=== PATIENT | female | born 1990 | race Hispanic/Latino ===

== ENCOUNTER 2016-10-18 21:09 | Observation (INO) | payer MEDICAID, OTHER ==
[2016-10-18 21:09] VITALS: BMI 18.5
--- NOTE | 2016-10-18 22:19 | C.PDOC ---
History Of Present Illness A 29 year old female brought in by EMS for intoxication and needing a place to sleep. Patient just "wants a place to sleep" she denies any other complaints. Time Seen by Provider: 10/18/16 21:17 Chief Complaint (Nursing): Substance Abuse History Per: Patient History/Exam Limitations: no limitations Onset/Duration Of Symptoms: Hrs Current Symptoms Are (Timing): Still Present Suicide/Self Injury Attempted (Context): None Modifying Factor(s): Other (Heroin) Severity: Mild Associated Symptoms: denies: Suicidal Thoughts, Suicidal Plan Recent travel outside of the [place]: No Past Medical History Reviewed: Historical Data, Nursing Documentation, Vital Signs Vital Signs: Last Vital Signs Temp 98.6 F 10/18/16 21:24 Pulse 81 10/18/16 21:24 Resp 18 10/18/16 21:24 BP Pulse Ox 95 10/18/16 22:19 - Medical History PMH: Depression, Schizophrenia Denies: Diabetes, Hepatitis, HIV, HTN, Seizures, Sexually Transmitted Disease Family History: States: Unknown Family Hx - Social History Hx Alcohol Use: No Hx Substance Use: Yes Review Of Systems Except As Marked, All Systems Reviewed And Found Negative. Constitutional: Positive for: Other (Intoxicated). Negative for: Fever, Chills Respiratory: Negative for: Shortness of Breath Gastrointestinal: Negative for: Nausea, Vomiting, Abdominal Pain Psych: Negative for: Suicidal ideation Physical Exam - Physical Exam Appears: Non-toxic, No Acute Distress, Other (Intoxicated) Skin: Warm, Dry Head: Atraumatic, Normacephalic Eye(s): bilateral: Normal Inspection, PERRL, EOMI Cardiovascular: Rhythm Regular, No Murmur Respiratory: Normal Breath Sounds, No Rales, No Rhonchi, No Wheezing Neurological/Psych: Oriented x3, Normal Speech, Other (A&A) ED Course And Treatment O2 Sat by Pulse Oximetry: 95 (RA) Pulse Ox Interpretation: Normal Medical Decision Making Medical Decision Making: Plans: -Admittance foe ED obs -Reassess and disposition ED OBSERVATION Date of observation admission: 10/18/16 Time of observation admission: 22:19 - Observation admission statement Patient is being placed in observation because:: Lack of community services, homelessness, and substance abuse - Goals of Observation Goals of observation are:: Safe environment, pending Sobriety - Progress Note Progress Note: Pt remains stable Disposition - Disposition Disposition: HOME/ ROUTINE Disposition Time: 00:21 Condition: FAIR - Clinical Impression Clinical Impression: Homeless single person, Drug dependence - Scribe Statement The provider has reviewed the documentation as recorded by the Scribe Romina burdick All medical record entries made by the Scribe were at my direction and personally dictated by me. I have reviewed the chart and agree that the record accurately reflects my personal performance of the history, physical exam, medical decision making, and the department course for this patient. I have also personally directed, reviewed, and agree with the discharge instructions and disposition. Physician Patient Turnover Patient Signed Over To: Aniya Reagan Handoff Comments: Pending sobriety
[2016-10-19 01:18] VITALS: RESP 20; O2SAT 98
[2016-10-19 06:02] VITALS: BP 108/76; PULSE 79; TEMP 97.8
== END 2016-10-19 06:05 | disposition home or self-care (01) ==
LOC: C.ER 21:09 → C.9OBSV 21:48
PROVIDERS: ADMIT Emergency Medicine; ATTEND Emergency Medicine
DX: F19.20 Other psychoactive substance dependence, uncomplicated (principal); F20.9 Schizophrenia, unspecified; Z59.0 Homelessness
CPT/HCPCS: 99285; G0378

== ENCOUNTER 2016-10-19 13:31 | Inpatient (IN) | payer MEDICAID, OTHER ==
[2016-10-19 13:31] VITALS: BMI 18.5
--- NOTE | 2016-10-19 14:28 | C.PDOC ---
History Of Present Illness 26 year old patient, with a past medical history of schizophrenia, presents to the ED complaining of hearing and seeing things. Patient has been non-complaint with her schizophrenia medication for the past several months. She also uses heroin. She inhaled a bag last night. Patient denies suicidal or homicidal ideation. Time Seen by Provider: 10/19/16 14:15 Chief Complaint (Nursing): Psychiatric Evaluation History Per: Patient History/Exam Limitations: no limitations Onset/Duration Of Symptoms: Other Current Symptoms Are (Timing): Still Present Suicide/Self Injury Attempted (Context): None Modifying Factor(s): Other (heroin) Severity: None Pain Scale Rating Of: 0 Associated Symptoms: Other (hallucinations) Recent travel outside of the [place]: No Past Medical History Reviewed: Historical Data, Nursing Documentation, Vital Signs Vital Signs: Last Vital Signs Temp 97.7 F 10/19/16 13:41 Pulse 69 10/19/16 16:30 Resp 20 10/19/16 16:30 BP 117/68 10/19/16 16:30 Pulse Ox 100 10/19/16 18:22 - Medical History PMH: Depression, Schizophrenia Family History: States: Unknown Family Hx - Social History Hx Alcohol Use: No Hx Substance Use: Yes - Immunization History Hx Tetanus Toxoid Vaccination: No Hx Influenza Vaccination: No Hx Pneumococcal Vaccination: No Review Of Systems Except As Marked, All Systems Reviewed And Found Negative. Cardiovascular: Negative for: Chest Pain Respiratory: Negative for: Shortness of Breath Psych: Positive for: Other (hallucinations (auditory and visual)). Negative for : Suicidal ideation Physical Exam - Physical Exam Appears: Other (lethargic, easily arousable) Skin: Warm, Dry Head: Atraumatic, Normacephalic Neck: Normal ROM, Supple Chest: Symmetrical Cardiovascular: Rhythm Regular Respiratory: Normal Breath Sounds, No Rales, No Rhonchi, No Wheezing Back: Normal Inspection Extremity: Normal ROM Neurological/Psych: Oriented x3 Gait: Steady ED Course And Treatment - Laboratory Results Result Diagrams: 10/19/16 15:04 10/19/16 15:04 Lab Interpretation: Abnormal (hyperglycemia, opiods and cocaine (+)) Interpretation Of Abnormal: consistent with UTI O2 Sat by Pulse Oximetry: 100 (room air) Pulse Ox Interpretation: Normal Progress Note: Plan: Labs Disposition Counseled Patient/Family Regarding: Studies Performed, Diagnosis - Disposition Disposition: HOSPITALIZED Disposition Time: 18:20 Condition: STABLE - POA Present On Arrival: None - Clinical Impression Clinical Impression: Schizophrenia, Opioid dependence, Urinary tract infection - PA / HITCHER / Resident Statement MD/DO has reviewed & agrees with the documentation as recorded. - Scribe Statement The provider has reviewed the documentation as recorded by the Scribe Nguyen Noble All medical record entries made by the Scribe were at my direction and personally dictated by me. I have reviewed the chart and agree that the record accurately reflects my personal performance of the history, physical exam, medical decision making, and the department course for this patient. I have also personally directed, reviewed, and agree with the discharge instructions and disposition. Decision To Admit - Pt Status Changed To: Hospital Disposition Of: Inpatient - Admit Certification Admit to Inpatient:: After my assessment, the patient will require hospitalization for at least two midnights. This is because of the severity of symptoms shown, intensity of services needed, and/or the medical risk in this patient being treated as an outpatient. - InPatient: Physician Admission Certification: I certify that this patient requires 2 or more midnights of care for the following reason:: see note - . Bed Request Type: Psychiatry Admitting Physician: Napoleon Adam Patient Diagnosis: Schizophrenia, Opioid dependence, Urinary tract infection
[2016-10-19 15:07] LABS: BASO # 0.1 K/uL (0.0-0.2); BASO % 0.9 % (0.0-2.0); EOS # 0.2 K/uL (0.0-0.7); EOS % 2.3 % (0.0-4.0); HEMATOCRIT 42.8 % (34.0-47.0); LYMPH # 2.6 K/uL (1.0-4.3); LYMPH % 24.4 % (20.0-40.0); MEAN CELL VOLUME 94.1 fL (81.0-99.0); MEAN CORPUSCULAR HEMOGLOBIN 31.5 pg (27.0-31.0); MEAN CORPUSCULAR HGB CONC 33.5 g/dL (33.0-37.0); MEAN PLATELET VOLUME 9.4 fL (7.2-11.7); MONO # 0.6 K/uL (0.0-0.8); MONO % 5.8 % (0.0-10.0); RED CELL DISTRIBUTION WIDTH 12.7 % (11.5-14.5); WHITE BLOOD COUNT 10.8 K/uL (4.8-10.8)
[2016-10-19 15:12] LABS: RBC URINE 5 /hpf (0-3); URINE BILIRUBIN NEGATIVE (NEGATIVE); URINE BLOOD NEGATIVE (NEGATIVE); URINE COLOR Yellow (YELLOW); URINE GLUCOSE (UA) 1+ mg/dL (Normal); URINE KETONE NEGATIVE (NEGATIVE); URINE LEUKOCYTE ESTERASE 1+ Leu/uL (Negative); URINE PROTEIN NEGATIVE (NEGATIVE); URINE UROBILINOGEN NORMAL mg/dL (0.2-1.0); WBC URINE 32 /hpf (0-5)
[2016-10-19 15:22] LABS: CHLORIDE 100 mmol/L (98-107); POTASSIUM 3.9 mmol/L (3.6-5.2); SODIUM 138 mmol/L (132-148)
[2016-10-19 15:24] LABS: GFR AFRICAN-AMERICAN > 60
[2016-10-19 15:25] LABS: ALB/GLOB RATIO 1.3 (1.0-2.1); ALKALINE PHOSPHATASE 65 U/L (38-126); ALT/SGPT 34 U/L (9-52); AST/SGOT 82 U/L (14-36); BILIRUBIN,TOTAL 0.4 mg/dL (0.2-1.3); BLOOD UREA NITROGEN 13 mg/dL (7-17); CALCIUM 8.6 mg/dl (8.6-10.4); CARBON DIOXIDE 25 mmol/L (22-30); GLUCOSE,RANDOM 151 mg/dL (65-105)
[2016-10-19 15:26] LABS: ALCOHOL SERUM < 10 mg/dl (0-10)
[2016-10-19 20:44] VITALS: O2SAT 95
[2016-10-20] MEDS ORDERED: Pneumococcal 23-Valent Vaccine IM ONE (00:04)
--- NOTE | 2016-10-20 15:44 | PCM.PSYCH ---
Initial Psychiatric Evaluation - Initial Psychiatric Evaluation Type of Admission: Voluntary Legal Status: Capacity Chief Complaint (in patient's own words): "I'm hearing voices and seeing things" History of Present Illness and Precipitating Events: Patient is a 26 year old Female, currently homeless, originally from [place] but ended up stranded in [place], was escorted to the hospital by the police because of bizarre behaviors and yelling and screaming in the street. She has been diagnosed with Schizophrenia and has had multiple hospitalizations at [facility] in [place]. Patient remained superficially cooperative but guarded about the details. Patient appeared disheveled and unkempt. she reports irritable and depressed mood. Reports auditory hallucinations noncommand type and visual hallucinations seeing shadows. She reports poor sleep and complains of being tired. She had used one bag of heroin intranasally and smokes $20-40 cocaine. She smokes pack daily. Denies use of marijuana, alcohol and other drugs. She reports anxiety and sweating but denies nausea, vomiting, abdominal pain, chest pain, or any other withdrawal symptoms. Patient plans on going back to [place] after hospital discharge. She denies any suicidal or homicidal ideation. Allergies: NKDA PMH: denies PsychHx: schizophrenia FamPsychHx: Pt says her mother has psychiatric history. Current Medications: Active Medications Generic Name Dose Route Start Last Admin Trade Name Freq PRN Reason Stop Dose Admin Benztropine Mesylate 2 mg 10/20/16 00:34 10/20/16 12:24 Cogentin PO 2 mg Q6 PRN Administration Extra Pyramidal Symptoms Diphenhydramine HCl 50 mg 10/20/16 00:34 Benadryl PO Q6 PRN Extra Pyramidal Symptoms Haloperidol 5 mg 10/20/16 00:34 10/20/16 12:24 Haldol PO 5 mg Q8 PRN Administration Moderate Agitation Haloperidol 5 mg 10/20/16 18:00 Haldol PO BID LENNY Haloperidol Lactate 5 mg 10/20/16 00:34 Haldol IM Q8 PRN Moderate Agitation Pneumococcal Polyvalent Vaccine 0.5 ml 10/22/16 10:00 Pneumovax 23 Vaccine IM 10/22/16 10:01 .ONCE ONE Trazodone HCl 50 mg 10/20/16 22:00 Desyrel PO HS LENNY Past Psychiatric History - Past Psychiatric History Previous Treatment History: Inpatient Pertinent Medical Hx (Current Medical&Sleep Prob, Allergies): Allergies Allergy/AdvReac Type Severity Reaction Status Date / Time No Known Allergies Allergy Verified 10/12/16 09:08 No Known Home Med 10/19/16 Review of Systems - Review of Systems All systems: reviewed and no additional remarkable complaints except - Psychiatric Psychiatric: Anxiety, Auditory Hallucinations, Irritability, Visual Hallucinations. absent: Suicidal Ideation Mental Status Examination - Personal Presentation Personal Presentation: Looks stated age - Affect Affect: Constricted, Depressed - Motor Activity Motor Activity: Calm - Reliability in Providing Information Reliability in Providing Information: Good - Speech Speech: Organized - Mood Mood: Depressed, Anxious - Formal Thought Process Formal Thought Process: Hallucinations, Paranoia - Hallucinations/Delusions Hallucinations: Visual, Auditory - Obsessions/Compulsions Obsessions: No Compulsions: No - Cognitive Functions Orientation: Person, Place, Situation, Time Sensorium: Alert Attention/Concentration: Attentive Abstract Thinking: Holt Estimate of Intelligence: Below average Judgement: Imparied, as evidence by: Poor judgement, Imparied, as evidence by: Lack of insight into illness (hello) - Risk Risk: Withdrawal, Diminished functioning - Strength & Assets Inventory Strength & Assets Inventory: Cooperative DSM 5 DX - DSM 5 DSM 5 Diagnosis: Schizophrenia paranoid type rule out Bipolar disorder current episode mixed severe with psychosis Cocaine use disorder severe Opiate use disorder mod - Recommended/Plan of Treatment Treatment Recommendations and Plan of Treatment: Schizophrenia paranoid type rule out Bipolar disorder current episode mixed severe with psychosis CBT Psychoeducation Supportive therapy and group therapy Haldol 5 mg by mouth twice a day cogentin 1 mg by mouth twice a day Trazodone 50 mg by mouth daily at bedtime Cocaine use disorder severe CBT Psychoeducation Use TN for abstinence Opiate use disorder moderate CBT Psychoeducation Use TN for abstinence - Smoking Cessation Smoking Cessation Initiated: No
--- NOTE | 2016-10-21 10:34 | PCM.PYCHPN ---
Psychiatric Progress Note - Psychiatric Progress Note Patient seen today, length of contact: 17 min Patient Chief Complaint: "I'm feeling better" Problems Identified/Issues Discussed: Patient seen and evaluated, chart reviewed and discussed with the nurse. Patient appeared more organized and less internally preoccupied. Patient reports improvement in her anxiety and irritability. She took shower and started taking care of her hygiene. She reports improvement in her voices and reports improvement in her mood. However patient remained isolated and withdrawn. she denies any suicidal ideation or homicidal ideation. Supportive therapy and psychoeducation were given. Medication Change: Yes (start gabapentin) Medical Record Reviewed: Yes Mental Status Examination - Cognitive Function Orientation: Person, Place, Situation, Time Memory: Intact Attention: WNL Concentration: WNL Association: Loose Fund of Knowledge: WNL - Mood Mood: Anxious - Affect Affect: Constricted - Speech Speech: Soft - Formal Thought Process Formal Thought Process: Hallucinations, Loosening of associations - Suicidal Ideation Suicidal Ideation: No - Homicidal Ideation Homicidal Ideation: No Goal/Treatment Plan - Goal/Treatment Plan Need for Continued Stay: Discharge may exacerbated symptoms, Severe functional impairment Progress Toward Problem(s) and Goals/Treatment Plan: Schizophrenia paranoid type rule out Bipolar disorder current episode mixed severe with psychosis CBT Psychoeducation Supportive therapy and group therapy Haldol 5 mg by mouth twice a day cogentin 1 mg by mouth twice a day Trazodone 50 mg by mouth daily at bedtime gabapentin 100 mg by mouth 3 times a day Cocaine use disorder severe CBT Psychoeducation Use LA for abstinence Opiate use disorder moderate CBT Psychoeducation Use LA for abstinence - Smoking Cessation Smoking Cessation Initiated: Yes
[2016-10-22 07:33] VITALS: BP 111/69; PULSE 62; RESP 20; TEMP 98.1
[2016-10-22] MEDS ORDERED: Pneumococcal 23-Valent Vaccine IM ONE (10:00)
--- NOTE | 2016-10-22 10:22 | PCM.PYCHDC ---
Mental Status Examination - Mental Status Examination Orientation: Person, Place, Situation, Time Memory: Intact Mood: Neutral Affect: Constricted Speech: Soft Attention: WNL Concentration: WNL Association: WNL Fund of Knowledge: WNL Formal Thought Process: No Impairment Description of patient's judgement and insight: good, fair Psychotic Thoughts and Behaviors: denies any AVH Suicidal Ideation: No Current Homicidal Ideation?: No Discharge Summary - Discharge Note Reason for Hospitalization: Patient is a 26 year old Female, currently homeless, originally from [place] but ended up stranded in [place], was escorted to the hospital by the police because of bizarre behaviors and yelling and screaming in the street. She has been diagnosed with Schizophrenia and has had multiple hospitalizations at [facility] in [place]. Patient remained superficially cooperative but guarded about the details. Patient appeared disheveled and unkempt. she reports irritable and depressed mood. Reports auditory hallucinations noncommand type and visual hallucinations seeing shadows. She reports poor sleep and complains of being tired. She had used one bag of heroin intranasally and smokes $20-40 cocaine. She smokes pack daily. Denies use of marijuana, alcohol and other drugs. She reports anxiety and sweating but denies nausea, vomiting, abdominal pain, chest pain, or any other withdrawal symptoms. Patient plans on going back to [place] after hospital discharge. She denies any suicidal or homicidal ideation. Consultations:: List each consultation separately and include: 1. Reason for request. 2. Findings. 3. Follow-up Summary of Hospital Course include:: 1. Description of specific treatment plan utilized for patients during their course of treatmen. 2. Summarize the time- course for resolution of acute symptoms and/or regressed behaviors. 3. Describe issues identified and worked on during hospitalization. 4. Describe medication utilized. 5. Describe medical problems identified and treated. 6. Reassessment of suicide risk Summary of Hospital Course: During the course of her stay, patient (pt) started progressively improving and she no longer remained irritable, anxious and paranoid. Her mood and paranoia were improved and she started attending groups and meetings and started socializing. Patient denied any feelings of hopelessness, helplessness, and worthlessness, denied any problem with the sleep or appetite, denied suicidal ideation or homicidal ideation. Pt denied any auditory or visual hallucinations. Some changes were made in her current medications and patient was discharged on following medications. She tolerated these medications very well and denied any side effects. - Final Diagnosis (DSM 5) Condition upon Discharge: STABLE DSM 5: Bipolar disorder current episode mixed severe with psychosis Cocaine use disorder severe Opiate use disorder moderate Disposition: HOME/ ROUTINE Follow-up Treatment Plan: Education: Pt was educated and counseled about the risks and benefits of taking and not taking medications. Pt was educated and counseled about the risks of drinking and abusing drugs. Pt was educated and counseled to go to the ER or call 911 if pt develop suicidal ideation or homicidal ideation, worsening of symptoms or severe side effects of the meds. Prescriptions/Medication Reconciliation: Benztropine [Cogentin] 1 mg PO BID #60 tab Gabapentin [Neurontin] 100 mg PO TID #90 cap Haloperidol [Haldol] 5 mg PO BID #60 tab traZODone [Desyrel] 50 mg PO HS #30 tab - Smoking Cessation Smoking Cessation Medication prescribed: No - Antipsychotic Medications Pt discharged on 2 or more routine antipsychotic medications: No
== END 2016-10-22 10:35 | disposition home or self-care (01) | DRG 430 ==
LOC: C.ER 13:31 → C.9E 18:20 → C.5E 20:35
PROVIDERS: ADMIT Psychiatry & Neurology Psychiatry; ATTEND Psychiatry & Neurology Psychiatry
PROC: GZ3ZZZZ Medication Management (ICD-10-PCS; principal; 2016-10-19)
PROC: HZ99ZZZ Pharmacotherapy for Substance Abuse Treatment, Other Replacement Medication (ICD-10-PCS; 2016-10-19)
PROC: HZ59ZZZ Individual Psychotherapy for Substance Abuse Treatment, Supportive (ICD-10-PCS; 2016-10-19)
PROC: GZHZZZZ Group Psychotherapy (ICD-10-PCS; 2016-10-19)
PROC: GZ56ZZZ Individual Psychotherapy, Supportive (ICD-10-PCS; 2016-10-19)
DX: F20.0 Paranoid schizophrenia (principal); F31.64 Bipolar disorder, current episode mixed, severe, with psychotic features; F11.20 Opioid dependence, uncomplicated; F14.20 Cocaine dependence, uncomplicated; N39.0 Urinary tract infection, site not specified; F17.210 Nicotine dependence, cigarettes, uncomplicated

== ENCOUNTER 2016-11-14 17:39 | Observation (INO) | payer MEDICAID ==
[2016-11-14 17:58] VITALS: BMI 21.6
[2016-11-14] MEDS ORDERED: DiphenhydrAMINE 50 mg/ml Inj IM STA (18:00)
[2016-11-14] MEDS ORDERED: DiphenhydrAMINE 50 mg/ml Inj ONE (18:09)
[2016-11-14 18:38] LABS: BASO # 0.1 K/uL (0.0-0.2); BASO % 0.9 % (0.0-2.0); EOS # 0.4 K/uL (0.0-0.7); EOS % 4.3 % (0.0-4.0); HEMATOCRIT 38.2 % (34.0-47.0); LYMPH # 3.5 K/uL (1.0-4.3); LYMPH % 36.8 % (20.0-40.0); MEAN CORPUSCULAR HGB CONC 34.5 g/dL (33.0-37.0); MEAN PLATELET VOLUME 8.9 fL (7.2-11.7); MONO # 0.6 K/uL (0.0-0.8); MONO % 6.5 % (0.0-10.0); RED CELL DISTRIBUTION WIDTH 13.4 % (11.5-14.5); WHITE BLOOD COUNT 9.6 K/uL (4.8-10.8)
[2016-11-14 18:47] LABS: CHLORIDE 100 mmol/L (98-107)
[2016-11-14 18:48] LABS: POTASSIUM 3.9 mmol/L (3.6-5.2); SODIUM 137 mmol/L (132-148)
[2016-11-14 18:50] LABS: GFR AFRICAN-AMERICAN > 60
[2016-11-14 18:51] LABS: ALB/GLOB RATIO 1.4 (1.0-2.1); ALKALINE PHOSPHATASE 67 U/L (38-126); ALT/SGPT 23 U/L (9-52); AST/SGOT 50 U/L (14-36); BILIRUBIN,TOTAL 0.6 mg/dL (0.2-1.3); BLOOD UREA NITROGEN 17 mg/dL (7-17); CALCIUM 9.2 mg/dl (8.6-10.4); CARBON DIOXIDE 27 mmol/L (22-30); GLUCOSE,RANDOM 127 mg/dL (65-105); TOTAL PROTEIN 7.4 g/dL (6.3-8.3)
[2016-11-14 18:52] LABS: ALCOHOL SERUM < 10 mg/dl (0-10)
--- NOTE | 2016-11-14 19:03 | C.PDOC ---
History Of Present Illness 26 y/o female brought in by EMS for public intoxication. Was walking through streets screaming at people who were not there. In ED pt screaming having conversation with self, unable to be redirected. Pt denies substance abuse. History limited. Time Seen by Provider: 11/14/16 17:57 Chief Complaint (Nursing): Psychiatric Evaluation History Per: Patient History/Exam Limitations: no limitations Onset/Duration Of Symptoms: Hrs Severity: Mild Involuntary Hold By: None Recent travel outside of the [place]: No Past Medical History Reviewed: Historical Data, Nursing Documentation, Vital Signs Vital Signs: Last Vital Signs Temp 97.5 F L 11/14/16 23:14 Pulse 73 11/14/16 23:14 Resp 18 11/14/16 23:14 BP 135/74 11/14/16 23:14 Pulse Ox 99 11/14/16 23:14 - Medical History PMH: Depression, Schizophrenia - [facility] Procedures GROUP PSYCHOTHERAPY (10/19/16) INDIV PSYCHOTHERAPY FOR SUBSTANCE ABUSE TREATMENT, SUPPORT (10/19/16) INDIVIDUAL PSYCHOTHERAPY, SUPPORTIVE (10/19/16) MEDICATION MANAGEMENT (10/19/16) PHARMACOTHERAPY FOR SUBSTANCE ABUSE, OTH REPLACE MED (10/19/16) Family History: States: Unknown Family Hx - Social History Hx Alcohol Use: No Hx Substance Use: Yes - Immunization History Hx Tetanus Toxoid Vaccination: No Hx Influenza Vaccination: No Hx Pneumococcal Vaccination: No Review Of Systems Review Of Systems: ROS cannot be obtained secondary to pt's inabilty to answer questions. Physical Exam - Physical Exam Appears: Non-toxic, Other (discheveled, bizarre, internally motivated, argumentative with staff) Skin: Warm, Dry, No Rash Head: Atraumatic, Normacephalic Neck: Normal, Normal ROM, Supple Chest: Symmetrical Cardiovascular: Rhythm Regular, No Murmur Respiratory: Normal Breath Sounds, No Rales, No Rhonchi, No Wheezing Gastrointestinal/Abdominal: Normal Exam, Soft, No Tenderness Extremity: Normal ROM Extremity: Bilateral: Atraumatic ED Course And Treatment - Laboratory Results Result Diagrams: 11/14/16 18:33 11/14/16 18:33 Lab Interpretation: Abnormal (tox + cocaine/opiates, ua neg, etoh neg.) Urine POC: Negative O2 Sat by Pulse Oximetry: 100 (room air) Pulse Ox Interpretation: Normal Progress Note: Plan: labs, UA, ativan, benadryl, geodon Reevaluation Time: 00:32 Reassessment Condition: Improved (sleeping calmly, on monitor, comfortable.) - Physician Consult Information Outcome Of Conversation: d/w Crisis multiple times. pt pending eval when sober Medical Decision Making Medical Decision Making: polysubstance abuse, unclear if underlying psych issues. Disposition - Disposition Disposition Time: 01:00 Condition: GOOD - Clinical Impression Clinical Impression: Schizophrenia, Polysubstance abuse, Homeless single person - Scribe Statement The provider has reviewed the documentation as recorded by the Scribe Fawad Peoples Provider Attestation: All medical record entries made by the Scribe were at my direction and personally dictated by me. I have reviewed the chart and agree that the record accurately reflects my personal performance of the history, physical exam, medical decision making, and the department course for this patient. I have also personally directed, reviewed, and agree with the discharge instructions and disposition. Physician Patient Turnover Patient Signed Over To: Caleb Samuel Handoff Comments: dispo in AM when sober, per Crisis eval
[2016-11-14 19:10] LABS: RBC URINE 8 /hpf (0-3); URINE BACTERIA RARE (<OCC); URINE BILIRUBIN NEGATIVE (NEGATIVE); URINE BLOOD 2+ (NEGATIVE); URINE COLOR Yellow (YELLOW); URINE GLUCOSE (UA) NORMAL (Normal); URINE KETONE NEGATIVE (NEGATIVE); URINE LEUKOCYTE ESTERASE TRACE Leu/uL (Negative); URINE PROTEIN 1+ mg/dL (NEGATIVE); URINE UROBILINOGEN NORMAL mg/dL (0.2-1.0); WBC URINE 14 /hpf (0-5)
[2016-11-15] MEDS ORDERED: Morphine 4 MG/ML VIAL ONE (10:09)
[2016-11-16 05:33] VITALS: BP 104/63; PULSE 61; RESP 20; TEMP 97.8; O2SAT 98
== END 2016-11-16 05:52 | disposition home or self-care (01) ==
LOC: C.ER 17:39 → C.9OBSV 19:38
PROVIDERS: ADMIT Internal Medicine; ATTEND Internal Medicine
DX: F20.9 Schizophrenia, unspecified (principal); Z59.0 Homelessness; F11.10 Opioid abuse, uncomplicated; F14.10 Cocaine abuse, uncomplicated
CPT/HCPCS: 80053; 80320; 80324; 80345; 80346; 80349; 80353; 80358; 80361; 81001; 83992; 84703; 85025; 96372; 99285; G0378; J1200; J2060; J3486